=== PATIENT | female | born 1955 | race Caucasian/White ===

== ENCOUNTER → 2020-10-23 14:42 | Outpatient (CLI) | payer MEDICARE, OTHER, SELFPAY ==
--- NOTE | 2020-10-23 14:48 | VDUE_ITS ---
Reason For Study: Preop testing Right Arm Left Arm Rt Brachial A 1: 0.25cm x 0.25cm, 54cm/s Lt Brachial A: 0.35cm x 0.33cm, 72cm/s Rt Brachial A 2: 0.31cm x 0.32cm, 103cm/s Lt Radial A: 0.18cm x 0.16cm, 70cm/s. Left Cephalic Vein at the wrist measures Rt Radial A: 0.14cm x 0.14cm, 42cm/s. 0.10cm x 0.09 cm. Right Cephalic Vein at the wrist measures Left Cephalic Vein in the forearm measures 0.18cm x 0.16 cm. 0.17cm x 0.14 cm. Right Cephalic Vein in the forearm measures Left Cephalic Vein below antecub measures 0.16cm x 0.15 cm. 0.36cm x 0.32 cm. Right Cephalic Vein below antecub measures Left Cephalic Vein above antecub measures 0.11cm x 0.13 cm. 0.10cm x 0.09 cm. Right Cephalic Vein above antecub measures Left Cephalic Vein at mid bicep measures 0.51cm x 0.63 cm. 0.10cm x 0.12 cm. Right Cephalic Vein mid bicep measures Left Cephalic Vein at the shoulder measures 0.08cm x 0.08 cm. 0.14cm x 0.13 cm. Right Cephalic Vein at the shoulder measures Basilic vein at origin measures 0.32cm x 0.17cm x 0.16 cm. 0.31 cm. Right Basilic Vein at the origin measures Basilic vein at bicep measures 0.35cm x 0.32 0.52cm x 0.51 cm. cm. Right Basilic Vein mid bicep measures 0.32cm Basilic vein above antecub measures 0.31cm x x 0.32 cm. 0.31 cm. Right Basilic Vein above antecub measures 0.30cm x 0.29 cm. VL/Saphenous Vein Mapping, Bilat Interpretation Summary Patent and compressible bilateral upper extremity cephalic and basilic veins as noted. The right cephalic vein of the forearm is diminutive. In addition there is unusual narrow ing of the cephalic vein in the mid biceps area. The right upper extremity basilic vein is of normal diameter The right brachial and radial arteries are of normal diameter with the brachial artery being bifurcated The left forearm cephalic vein is diminutive. The left upper arm cephalic vein also is very small. The left basilic vein of the upper arm is of normal caliber Left brachial and radial arteries are patent with with the left radial artery d iminutive Ordering Physician: Mynor Waters Referring Physician: Rand Perkins Performed By: Alexa Tavares, GENE, RVT ?
== END ==
PROVIDERS: PCP Internal Medicine; Referring Provider Surgery; Visit Provider Surgery
DX: Z01.818 Encounter for other preprocedural examination (principal)
CPT/HCPCS: 93970; 93985